=== PATIENT | female | born 1965 | race Caucasian/White ===

== ENCOUNTER 2017-07-07 02:08 | Emergency (ER) | payer BC ==
[2017-07-07 03:35] LABS: ABS Basophils 0.1 10^3/ul (0-0.2); ABS Eosinophils 0.1 10^3/ul (0-0.6); ABS Lymphocytes 1.5 10^3/ul (1.0-4.8); ABS Monocytes 0.7 10^3/ul (0-0.8); ABS Neutrophils 8.5 10^3/ul (1.5-7.7); ABS Nucleated RBC 0 10^3/ul; Eosinophil % 1.3 % (0-6); Hematocrit 39 % (35-47); Hemoglobin 13.4 g/dl (12.0-16.0); Lymphocyte % 13.3 % (25-47); Mean Corpuscular HGB Conc 34 g/dl (31-36); Mean Corpuscular Hemoglobin 31 pg (27-31); Mean Corpuscular Volume 90 fL (80-97); Mean Platelet Volume 8 um3 (7.4-10.4); Nucleated Red Blood Cells % 0.1; Platelet Count 296 10^3/ul (150-450); Red Blood Count 4.34 10^6/ul (4.0-5.4); Red Cell Distribution Width 13 % (10.5-15); White Blood Count 10.9 10^3/ul (3.5-10.8)
[2017-07-07] MEDS: Ketorolac INJ* 60 MG/2 ML VIAL IM ONE ×2 (03:39→04:17)
[2017-07-07 03:50] LABS: EGFR Non-African American 91.2 (>60)
[2017-07-07 03:54] LABS: Urine Appearance Clear; Urine Blood 3+ (Negative); Urine Color Straw; Urine Ketones Negative (Negative); Urine Protein Negative (Negative); Urine Specific Gravity 1.006 (1.010-1.030); Urine Urobilinogen Negative (Negative)
[2017-07-07] MEDS ORDERED: Amoxicillin/Clavulanate TAB* 875 MG PO ONE (04:26)
[2017-07-07 05:08] VITALS: BP 146/92
--- NOTE | 2017-07-24 01:23 | ED ---
Liz Coates Emily, scribed for Huy Mejia MD on 07/07/17 at 0243 . Lower Extremity - HPI Summary HPI Summary: This patient is a 52 year old F presenting to [facility] with a chief complaint of RLE pain that began yesterday. The pt describes the pain as a tightness. The patient rates the pain 7/10 in severity. Symptoms aggravated by heat and ice. Symptoms alleviated by nothing. Patient denies back pain and numbness. Medications reviewed. Allergies reviewed. - History of Current Complaint Chief Complaint: EDExtremityLower Stated Complaint: RT LEG IRRITATION Hx Obtained From: Patient Onset of Pain: Days Onset/Duration: Still Present Severity Initially: Moderate Severity Currently: Moderate Pain Intensity: 7 Pain Scale Used: 0-10 Numeric Timing: Constant, Lasting Days Associated Signs And Symptoms: Positive: Other - Negative back pain and numbness Aggravating Factor(s): Nothing Alleviating Factor(s): Nothing - Allergies/Home Medications Allergies/Adverse Reactions: Allergies Allergy/AdvReac Type Severity Reaction Status Date / Time Ciprofloxacin [From Cipro] Allergy Altered Verified 07/07/17 02:21 Mental Status Ibuprofen [From Advil] Allergy Headache Verified 07/07/17 02:21 PMH/Surg Hx/FS Hx/Imm Hx Previously Healthy: Yes Endocrine/Hematology History: Denies: Hx Diabetes Cardiovascular History: Denies: Hx Hypertension Opthamlomology History: Denies: Hx Legally Blind EENT History: Denies: Hx Deafness Infectious Disease History: No Infectious Disease History: Denies: Traveled Outside the [place] in Last 30 Days - Family History Known Family History: Positive: Cardiac Disease, Diabetes - Social History Occupation: Employed Full-time Lives: Alone Alcohol Use: None Hx Substance Use: No Substance Use Type: Reports: None Hx Tobacco Use: No Smoking Status (MU): Never Smoked Tobacco Review of Systems Positive: Other - Positive RLE pain. Negative back pain Negative: Numbness All Other Systems Reviewed And Are Negative: Yes Physical Exam - Summary Physical Exam Summary: Appearance: Well-appearing, Well-nourished Skin: Warm, Dry, No rash Eyes: Normal, PERRL, EOMI, sclera anicteric ENT: Normal Neck: Supple, nontender Respiratory: Clear to auscultation Cardiovascular: S1, S2, no murmur, no rub, no gallop Abdomen: Soft, nontender, no organomegaly Bowel sounds: Present Musculoskeletal: no edema, pulses symmetrical, Normal reflexes. Decreased strength in the dorsiflexion of the right greater toe. Positive straight leg raise. Pain in sciatic notch on the right. Unable to toe walk or heel walk. Neurological: Normal, A&Ox3, cranial nerves II-XII WNL, follows commands, gait not tested, sensation intact to pin and light touch Psychiatric: affect normal, behavior appropriate, dressed appropriately, judgment intact Triage Information Reviewed: Yes Vital Signs On Initial Exam: Initial Vitals Temp Pulse Resp BP Pulse Ox 99.1 F 85 16 150/92 98 07/07/17 02:17 07/07/17 02:17 07/07/17 02:17 07/07/17 02:17 07/07/17 02:17 Vital Signs Reviewed: Yes Diagnostics - Vital Signs Vital Signs Temp Pulse Resp BP Pulse Ox 07/07/17 02:17 99.1 F 85 16 150/92 98 - Laboratory Result Diagrams: 07/07/17 03:24 07/07/17 03:24 Lab Statement: Any lab studies that have been ordered have been reviewed, and results considered in the medical decision making process. Lower Extremity Course/Dx - Course Assessment/Plan: This patient is a 52 year old F presenting to [facility] with a chief complaint of RLE pain that began yesterday. The pt describes the pain as a tightness. Physical Exam Findings. Normal reflexes. Decreased strength in the dorsiflexion of the right greater toe. Positive straight leg raise. Pain in sciatic notch on the right. Unable to toe walk or heel walk. Bloodwork and UA obtained. In the ED course the patient was given Toradol. Patient will be discharged with prescription for Augmentin and Mobic with follow up from PCP. The patient is agreeable with this plan. - Diagnoses Provider Diagnoses: Urinary tract infection, Lumbar radiculopathy Discharge - Discharge Plan Condition: Fair Disposition: HOME Prescriptions: Amoxicillin/Clavulanate TAB* [Augmentin TAB 875*] 875 mg PO BID 5 Days #10 tab Meloxicam [Mobic] 15 mg PO DAILY PRN #14 tab PRN Reason: Pain Patient Education Materials: Urinary Tract Infection in Women (ED), Lumbar Radiculopathy (ED) Referrals: Nan Maldonado NP [Primary Care Provider] - The documentation as recorded by the scribe, Day,Gerri accurately reflects the service I personally performed and the decisions made by me, Huy Mejia MD.
== END 2017-07-07 05:00 | disposition home or self-care (01) ==
LOC: ED 02:08
DX: M54.16 Radiculopathy, lumbar region (principal); N39.0 Urinary tract infection, site not specified; Z88.6 Allergy status to analgesic agent; Z88.3 Allergy status to other anti-infective agents
CPT/HCPCS: 36415; 80053; 81003; 81015; 85025; 85652; 87086; 96372; 99283; A9270-GY; J1885

== ENCOUNTER 2018-03-10 12:38 | Emergency (ER) | payer BC ==
[2018-03-10 12:46] VITALS: BP 140/89
[2018-03-10] MEDS ORDERED: Tetan/Diph/Pertus SYR(Tdap)* 0.5 ML SYR(BOOSTRIX) use SYR IM ONE (12:57)
--- NOTE | 2018-03-10 12:59 | UC ---
Skin Complaint HPI - HPI Summary HPI Summary: 53-year-old female presents with a puncture wound and she states she is not up- to-date with her tetanus shot. She was cleaning a house today and struck her index finger with a dirty lavern nail she was released. She would like to have her tetanus shot at this time. She denies any other concerns or complications at this time. She denies any fevers or chills - History of Current Complaint Chief Complaint: UCGeneralIllness Time Seen by Provider: 03/10/18 12:56 Stated Complaint: PUNCTURE WOUND Hx Obtained From: Patient Onset/Duration: Sudden Onset Pain Intensity: 0 Aggravating Factor(s): Nothing Alleviating Factor(s): Nothing Associated Signs & Symptoms: Positive: Negative - Allergy/Home Medications Allergies/Adverse Reactions: Allergies Allergy/AdvReac Type Severity Reaction Status Date / Time MS Ciprofloxacin [From Cipro] Allergy Altered Verified 07/07/17 02:21 Mental Status MS Ibuprofen [From Advil] Allergy Headache Verified 07/07/17 02:21 Review of Systems Skin: Other - wound puncture Is Patient Immunocompromised?: No All Other Systems Reviewed And Are Negative: Yes PMH/Surg Hx/FS Hx/Imm Hx - Surgical History Surgical History: None - Family History Known Family History: Positive: Cardiac Disease, Diabetes - Social History Alcohol Use: None Substance Use Type: None Smoking Status (MU): Former Smoker Physical Exam Triage Information Reviewed: Yes Appearance: Well-Appearing, No Pain Distress, Well-Nourished Vital Signs: Initial Vital Signs Temp 97.2 F 03/10/18 12:43 Pulse 66 03/10/18 12:43 Resp 16 03/10/18 12:43 BP 140/89 03/10/18 12:43 Pulse Ox 100 03/10/18 12:43 Vital Signs Reviewed: Yes Eyes: Positive: Conjunctiva Clear ENT: Positive: Hearing grossly normal Neck: Positive: 1 Respiratory Exam: Normal Cardiovascular Exam: Normal Musculoskeletal Exam: Normal Neurological Exam: Normal Psychological Exam: Normal Skin Exam: Normal Skin: Positive: Other - small punctate non bleeding puncture wound right distal finger good cap refill normal brisk peripheral pulses Course/Dx - Diagnoses Provider Diagnoses: right index finger puncture wound Discharge - Sign-Out/Discharge Documenting (check all that apply): Patient Departure All imaging exams completed and their final reports reviewed: No Studies - Discharge Plan Condition: Good Disposition: HOME Patient Education Materials: Puncture Wound (ED) Referrals: Ian Olguin MD [Primary Care Provider] - If Needed - Billing Disposition and Condition Condition: GOOD Disposition: Home
== END 2018-03-10 13:38 | disposition home or self-care (01) ==
LOC: UCEAST 12:38
DX: S61.230A Puncture wound without foreign body of right index finger without damage to nail, initial encounter (principal); W45.0XXA Nail entering through skin, initial encounter; Y93.E9 Activity, other interior property and clothing maintenance; Y92.009 Unspecified place in unspecified non-institutional (private) residence as the place of occurrence of the external cause; Z23 Encounter for immunization; Z88.6 Allergy status to analgesic agent; Z88.1 Allergy status to other antibiotic agents; Z87.891 Personal history of nicotine dependence
CPT/HCPCS: 90471; 90715; 99211; G0463

== ENCOUNTER 2018-06-14 09:34 | Emergency (ER) | payer BC ==
--- NOTE | 2018-06-14 11:18 | UC ---
Nausea/Vomiting/Diarrhea HPI - HPI Summary HPI Summary: 53 y/o female presents to the urgent care c/o dizziness w/ nausea and vomiting for the past week. Pt reports she her her PCP Dr Madrigal last Wednesday for her vomiting and dizziness and He Dx w/ colitis and Laberynthitis and Rx Metronidazole and Meclizine. She took the Meclizine for 3 days since dizziness stopped. But yesterday when she wake up she dizziness returned. She feels the room is moving when she tries to get up. This morning she felt w/ nausea, but not vomiting, She feels mild nasal congestion w/ clear nasal discharge. She has decrease appetite and mild body aches. Pt denies fever, SOB, SANTORO, chest pain, palpitations, abdominal pain, V/D. - History of Current Complaint Chief Complaint: UCGI Stated Complaint: VOMITING Time Seen by Provider: 06/14/18 11:15 Hx Obtained From: Patient ?: No Onset/Duration: Gradual Onset, Lasting Weeks - 1 week, Still Present Timing: Intermittent Episodes Lasting: Severity Initially: Mild Severity Currently: Mild Pain Intensity: 0 Pain Scale Used: 0-10 Numeric Location: Other - no abdominal pain Character: Not Applicable Aggravating Factor(s): Other: - nausea Nausea/Vomiting Presence: Nauseated Diarrhea Presence: No - Allergies/Home Medications Allergies/Adverse Reactions: Allergies Allergy/AdvReac Type Severity Reaction Status Date / Time ciprofloxacin [From Cipro] Allergy Altered Verified 06/14/18 09:48 Mental Status ibuprofen Allergy Headache Verified 06/14/18 09:48 Home Medications: Home Medications Meclizine TAB* [Antivert 12.5 TAB*] 12.5 mg PO TID PRN 06/14/18 [History Confirmed 06/14/18] metroNIDAZOLE [Flagyl 500 MG TAB] 500 mg PO TID 06/14/18 [History Confirmed ] PMH/Surg Hx/FS Hx/Imm Hx Previously Healthy: Yes - Pt denies PMHX - Surgical History Surgical History: Yes Surgery Procedure, Year, and Place: oral - Family History Known Family History: Positive: Cardiac Disease, Diabetes - Social History Occupation: Employed Full-time Lives: With Family Alcohol Use: None Substance Use Type: None Smoking Status (MU): Former Smoker Review of Systems All Other Systems Reviewed And Are Negative: Yes Constitutional: Positive: Fatigue, Other - body aches Skin: Positive: Negative Eyes: Positive: Negative ENT: Positive: Nasal Discharge - clear, Sinus Congestion, Other - dizziness at times Respiratory: Positive: Negative Cardiovascular: Positive: Negative Gastrointestinal: Positive: Nausea Genitourinary: Positive: Negative Motor: Positive: Negative Neurovascular: Positive: Negative Musculoskeletal: Positive: Negative Neurological: Positive: Negative Psychological: Positive: Negative Is Patient Immunocompromised?: No Physical Exam - Summary Physical Exam Summary: Vital Signs Reviewed: Yes General: well developed, well nourished female sitting in the examining table w /o any apparent respiratory distress. Eyes: Positive: Conjunctiva Clear - PERRLA, EOMI, fundi grossly normal ENT: Positive: Normal ENT inspection, Hearing grossly normal, Pharynx normal, TMs normal - B/L external ear canal clear, B/L TM's WNL, Other: - no maxillary or frontal sinus tenderness on percussion. Nose, edematous and erythematous nasal mucosa w/ clear nasal discharge. Negative Jsesica-hallpike maneuver. Negative : Tonsillar swelling, Tonsillar exudate Dental Exam: Normal Neck: Positive: Supple, Nontender, No Lymphadenopathy Respiratory: Positive: Chest non-tender, Lungs clear, Normal breath sounds Cardiovascular: Positive: RRR, No Murmur, Pulses Normal, Brisk Capillary Refill Abdomen Description: Positive: Nontender, No Organomegaly, Soft. Negative: CVA Tenderness (R), CVA Tenderness (L) Bowel Sounds: Positive: Present Musculoskeletal Exam: Normal Musculoskeletal: Positive: Strength Intact, ROM Intact, No Edema Neurological Exam: Normal Neurological: Positive: Alert, Muscle Tone Normal, Other: - -Neuro: A&O x4, GCS 15, CN II-XII intact, no focal neuro deficits, normal [id number] or heel-to- gray testing. Romberg neg, no pronator drift, normal rapid alternating movements. Gait is normal, Psychological Exam: Normal Skin Exam: Normal Triage Information Reviewed: Yes Vital Signs: Initial Vital Signs Temp 97.9 F 06/14/18 09:42 Pulse 78 06/14/18 09:42 Resp 18 06/14/18 09:42 BP 146/99 06/14/18 09:42 Pulse Ox 99 06/14/18 09:42 Naus/Vom/Diarrhea Course/Dx - Course Course Of Treatment: 53 y/o female presents to the urgent care c/o dizziness w/ nausea and vomiting for the past week. Pt reports she her her PCP Dr Madrigal last Wednesday for her vomiting and dizziness and He Dx w/ colitis and Laberynthitis and Rx Metronidazole and Meclizine. She took the Meclizine for 3 days since dizziness stopped. But yesterday when she wake up she dizziness returned. She feels the room is moving when she tries to get up. This morning she felt w/ nausea, but not vomiting, She feels mild nasal congestion w/ clear nasal discharge. She has decrease appetite and mild body aches. Pt denies fever, SOB, SANTORO, chest pain, palpitations, abdominal pain, V/D. Hx obtained. PE: WNL. Rapid influenza A&B: negative. No Orthostatic hypotension. Pt probably w/ labyrinthitis as PCP Dx her. Pt Rx Zofran PO for her Nausea. Advised to continue taking Meclizine PO and finish her Metronidazole PO for her Colitis. Pt given referral for ENT Dr Ponce for further evaluation and treatment of her vertigo.Pt's BP is elevated today advised to decrease salt in diet, monitor BP and f/u with PCP for further management. d/c instructions explained. Pt understood and agreed w/ plan of care. - Differential Dx/Diagnosis Differential Diagnoses - Female: Gastroenteritis (Viral), Vomiting, Colitis, Dehydration, Other - hypoglycemia, Vertigo, orthostatic hypotension, Provider Diagnosis: Vertigo, Nausea & vomiting, Elevated BP without diagnosis of hypertension Condition At Discharge: Stable Discharge - Sign-Out/Discharge Documenting (check all that apply): Patient Departure - d/c home All imaging exams completed and their final reports reviewed: No Studies - Discharge Plan Condition: Stable Disposition: HOME Prescriptions: Ondansetron ODT TAB* [Zofran 4 MG Odt TAB*] 4 mg PO Q8H PRN #12 tab.odt PRN Reason: nausea and vomiting Patient Education Materials: Vertigo (ED), Acute Nausea and Vomiting (ED) Referrals: Arnoldo Ponce MD [Medical Doctor] - 3 Days Ian Olguin MD [Primary Care Provider] - 3 Days Additional Instructions: 1- Please take Zofran PO to alleviate Nausea and vomiting. Increase hydration, rest, eat weel and avoid strenuous exercise 2- Continue taking Meclizine PO to alleviate dizziness. Finish your Metronidazol PO as your PCP recommended fo ryour colitis. 3-Please f/u PCP or ENT Dr Ponce in 3 days for further evaluation and treatment on your Vertigo. 4- If vomiting and dizziness continues severely despite medications please for Immediately to the ER for further evaluation and treatment. 5- Your BP is elevated today. please decrease salt in your diet, monitor BP and if it continues to be elevated please f/u with your PCP for further management 6- Influenza A&B was negative - Billing Disposition and Condition Condition: STABLE Disposition: Home
[2018-06-14 11:59] VITALS: BP 143/79
== END 2018-06-14 12:21 | disposition home or self-care (01) ==
LOC: UCEAST 09:34
DX: R42 Dizziness and giddiness (principal); R11.2 Nausea with vomiting, unspecified; R03.0 Elevated blood-pressure reading, without diagnosis of hypertension; Z88.1 Allergy status to other antibiotic agents; Z88.6 Allergy status to analgesic agent; Z87.891 Personal history of nicotine dependence
CPT/HCPCS: 99212; G0463